=== PATIENT | female | born 1980 | race Caucasian/White ===

== ENCOUNTER 2016-11-01 20:50 | Emergency (ER) | payer OTHER ==
[2016-11-01] MEDS ORDERED: PANTOPRAZOLE 40 MG TABLET PO STA (22:55)
[2016-11-01] MEDS ORDERED: PANTOPRAZOLE 40 MG TABLET ONE ×2 (22:56→22:58)
== END 2016-11-01 23:06 | disposition home or self-care (01) ==
DX: R10.11 Right upper quadrant pain (principal); R10.13 Epigastric pain; K21.9 Gastro-esophageal reflux disease without esophagitis; Z87.891 Personal history of nicotine dependence
CPT/HCPCS: 36415; 76705; 80053; 81003; 83690; 85025; 99283; A9270

== ENCOUNTER 2017-01-03 21:26 | Emergency (ER) | payer OTHER ==
[2017-01-03 21:33] VITALS: BP 102/66
[2017-01-03] MEDS ORDERED: ACETAMINOPHEN 325 MG TABLET PO STA (21:44)
--- NOTE | 2017-01-03 21:45 | ED Physician Documentation ---
PD HPI LOWER EXT INJURY - Stated complaint Stated Complaint: RT FOOT INJURY - Chief complaint Chief Complaint: Ext Problem - History obtained from History obtained from: Patient - History of Present Illness PD HPI LOW EXT INJURY LOCATION: Right, Ankle, Foot Type of injury: Twist Where injury occurred: Street Timing - onset: Today Timing - duration: Hours (1) Timing - details: Abrupt onset Pain level max: 8 Pain level now: 8 Improved by: Rest Worsened by: Moving, Palpating Associated symptoms: Swelling. No: Weakness, Numbness, Tingling Similar symptoms before: Has not had sx before Recently seen: Not recently seen Review of Systems Constitutional: denies: Fever, Chills Nose: denies: Rhinorrhea / runny nose, Congestion Throat: denies: Sore throat GI: denies: Abdominal Pain, Nausea, Vomiting, Diarrhea : denies: Now EGA Skin: denies: Rash Musculoskeletal: denies: Neck pain, Back pain Neurologic: denies: Headache, Head injury PD PAST MEDICAL HISTORY - Past Medical History Past Medical History: Yes Cardiovascular: None Respiratory: None Neuro: None Endocrine/Autoimmune: None GI: GERD BOTTOM MAN: None : Chronic bladder infection HEENT: None Psych: Anxiety Musculoskeletal: None Derm: None - Past Surgical History Past Surgical History: Yes /BOTTOM MAN: section, Dilation and currettage - Present Medications Home Medications: Ambulatory Orders Medication Instructions Recorded Confirmed Multivitamin [Multivitamins] 1 each PO DAILY 11/01/16 01/03/17 Ibuprofen [Motrin] 800 mg PO Q8H PRN #30 tablet 01/03/17 - Allergies Allergies/Adverse Reactions: Allergies Allergy/AdvReac Type Severity Reaction Status Date / Time hydrocodone bitartrate * AdvReac see below Verified 01/03/17 21:33 [From Vicodin] - Social History Does the pt smoke?: No Smoking Status: Former smoker Does the pt drink ETOH?: Yes Does the pt have substance abuse?: No - Immunizations Immunizations are current?: Yes - POLST Patient has POLST: No PD ED PE NORMAL - Vitals Vital signs reviewed: Yes - General General: Alert and oriented X 3, No acute distress - Derm Derm: Warm and dry - Extremities Extremities: Other (Right ankle and foot - Tender palpation over the lateral malleolus and the base of the fifth metatarsal. Neurovascularly intact. Otherwise normal exam.) - Neuro Neuro: Alert and oriented X 3 Results - Vitals Vitals: Vital Signs - 24 hr 01/03/17 21:29 Temperature 36.2 C L Heart Rate 72 Respiratory 15 Rate Blood Pressure 102/66 O2 Saturation 99 Oxygen O2 Source Room air - Rads (name of study) Right foot x-ray Radiology: Prelim report reviewed, EMP read contemporaneously, See rad report ( Normal) Right ankle x-ray Radiology: Prelim report reviewed, EMP read contemporaneously, See rad report ( Normal) PD MEDICAL DECISION MAKING - ED course Complexity details: reviewed results, re-evaluated patient, considered differential, d/w patient ED course: Patient is a 36-year-old female who appears to have a foot and ankle sprain. Did offer to place her in a walking boot, she declines this. Will place in an Aircast and she has crutches for home. Pain well controlled. No fractures on x -ray. Counseled regarding missed fractures secondary to acute swelling and may need repeat xrays if not improving. Patient counseled regarding signs and symptoms for which I believe and urgent re-evaluation would be necessary. Patient with good understanding of and agreement to plan and is comfortable going home at this time This document was made in part using voice recognition software. While efforts are made to proofread this document, sound alike and grammatical errors may occur. Departure - Departure Disposition: 01 Home, Self Care Clinical Impression: Ankle sprain Qualifiers: Encounter type: initial encounter Involved ligament of ankle: unspecified ligament Laterality: right Qualified Code(s): S93.401A - Sprain of unspecified ligament of right ankle, initial encounter Condition: Good Instructions: ED Sprain Foot, ED Sprain Ankle Follow-Up: JUNAID MERRITT [Primary Care Provider] - Within 1 week Prescriptions: Ibuprofen [Motrin] 800 mg PO Q8H PRN #30 tablet PRN Reason: PAIN &/OR FEVER Comments: Return if you worsen. Your xrays are normal today. You may bear weight as tolerated Discharge Date/Time: 01/03/17 23:00
[2017-01-03] MEDS ORDERED: ACETAMINOPHEN 325 MG TABLET PO ONE (21:55)
--- NOTE | 2017-01-03 22:15 | XRAY Preliminary Report ---
Exam: XR Foot 3 View RT IMPRESSION: Normal foot radiography. [facility] SITE ID: [id number]
--- NOTE | 2017-01-03 22:16 | XRAY Preliminary Report ---
Exam: XR Ankle 3 View RT IMPRESSION: Normal ankle radiography. [facility] SITE ID: [id number]
--- NOTE | 2017-01-03 22:18 | XRAY Report ---
EXAM: RIGHT FOOT RADIOGRAPHY EXAM DATE: 01/03/2017 09:50 PM. CLINICAL HISTORY: Fall. Rolled foot and ankle. COMPARISON: None. TECHNIQUE: 3 views. FINDINGS: Bones: Normal. No fractures or bone lesions. Joints: Normal. No subluxations. Soft Tissues: Normal. No soft tissue swelling. IMPRESSION: Normal foot radiography. [facility] Referring Provider Line: [phone] SITE ID: [id number]
--- NOTE | 2017-01-03 22:19 | XRAY Report ---
EXAM: RIGHT ANKLE RADIOGRAPHY EXAM DATE: 01/03/2017 09:50 PM. CLINICAL HISTORY: Pain with ambulation, movement after fall on curb. COMPARISON: None. TECHNIQUE: 3 views. FINDINGS: Bones: Normal. No fractures or bone lesions. Joints: Normal. No effusion. No subluxations. The ankle mortise is normally aligned. Soft Tissues: Normal. No soft tissue swelling. IMPRESSION: Normal ankle radiography. [facility] Referring Provider Line: [phone] SITE ID: [id number]
== END 2017-01-03 23:00 | disposition home or self-care (01) ==
LOC: ED 21:26
DX: S93.401A Sprain of unspecified ligament of right ankle, initial encounter (principal); S93.601A Unspecified sprain of right foot, initial encounter; X50.1XXA Overexertion from prolonged static or awkward postures, initial encounter; Y93.89 Activity, other specified; Y92.410 Unspecified street and highway as the place of occurrence of the external cause; Z87.891 Personal history of nicotine dependence
CPT/HCPCS: 73610; 73630; 99283; A9270

== ENCOUNTER 2017-12-11 12:09 | Emergency (ER) | payer OTHER ==
[2017-12-11] MEDS ORDERED: PHENAZOPYRIDINE 100 MG TABLET PO STA (12:27)
--- NOTE | 2017-12-11 12:33 | ED Physician Documentation ---
PD HPI FEMALE - Stated complaint Stated Complaint: FEMALE - Chief complaint Chief Complaint: UTI - History obtained from History obtained from: Patient - History of Present Illness Timing - onset: Other (Urinary frequency and burning for about a week which is worsening with some intermittent right flank pain and felt like she could go for a run today because of the pressure. She has infrequent UTIs, last was a year ago. She is mildly nauseous but denies fevers) Review of Systems Constitutional: reports: Reviewed and negative. denies: Fever, Chills GI: reports: Reviewed and negative : reports: Dysuria, Frequency, Hesitancy. 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 : Chronic bladder infection HEENT: None Psych: Anxiety Musculoskeletal: None Derm: None - Past Surgical History Past Surgical History: Yes /RAW MATERIAL HANDLER: section, Dilation and currettage - Present Medications Home Medications: Ambulatory Orders Medication Instructions Recorded Confirmed Multivitamin [Multivitamins] 1 each PO DAILY 11/01/16 01/03/17 Ibuprofen [Motrin] 800 mg PO Q8H PRN #30 tablet 01/03/17 Phenazopyridine HCl [Pyridium] 200 mg PO TID #6 tablet 12/11/17 Sulfamethoxazole/Trimethoprim 1 each PO BID 5 Days #10 tablet 12/11/17 [Sulfamethoxazole-Tmp Ds Tablet] - Allergies Allergies/Adverse Reactions: Allergies Allergy/AdvReac Type Severity Reaction Status Date / Time hydrocodone bitartrate * AdvReac see below Verified 01/03/17 21:33 [From Vicodin] - Social History Does the pt smoke?: No Smoking Status: Never smoker Does the pt drink ETOH?: Yes Does the pt have substance abuse?: No - Immunizations Immunizations are current?: Yes - POLST Patient has POLST: No PD ED PE NORMAL - Vitals Vital signs reviewed: Yes - General General: Alert and oriented X 3, No acute distress - Abdomen Abdomen: Soft, Non tender - Back Back: No CVA TTP - Neuro Neuro: Alert and oriented X 3, Normal speech Results - Vitals Vitals: Vital Signs - 24 hr 12/11/17 12/11/17 12:12 12:59 Temperature 36.0 C L 36.5 C Heart Rate 70 68 Respiratory 15 17 Rate Blood Pressure 109/61 105/76 O2 Saturation 100 99 Oxygen O2 Source Room air - Labs Labs: Laboratory Tests 12/11/17 12/11/17 12:24 12:24 Urine Color Cancelled YELLOW Urine Clarity Cancelled HAZY Urine pH Cancelled 6.0 Ur Specific [place] Cancelled 1.025 Urine Protein Cancelled NEGATIVE Urine Glucose (UA) Cancelled NEGATIVE Urine Ketones Cancelled NEGATIVE Urine Occult Blood Cancelled SMALL Urine Nitrite Cancelled NEGATIVE Urine Bilirubin Cancelled NEGATIVE Urine Urobilinogen Cancelled 0.2 (NORMAL) Ur Leukocyte Esterase Cancelled MODERATE H Urine RBC Cancelled 0-5 Urine WBC Cancelled >25 H Urine WBC Clumps Cancelled Ur Epithelial Cells Cancelled Ur Squamous Epith Cells Cancelled RARE Squamous Urine Crystals Cancelled Amorphous Sediment Cancelled Urine Bacteria Cancelled Few Urine Casts Cancelled Urine Starch Cancelled Urine Mucus Cancelled Urine Trichomonas Cancelled Urine Yeast Cancelled Urine Sperm Cancelled Ur Oval Fat Bodies Cancelled Ur Microscopic Review Cancelled INDICATED Urine Culture Comments INDICATED Urine HCG, Qual Cancelled NEGATIVE Departure - Departure Disposition: 01 Home, Self Care Clinical Impression: Pyelonephritis Condition: Good Record reviewed to determine appropriate education?: Yes Instructions: Pyelonephritis Dc Prescriptions: Phenazopyridine HCl [Pyridium] 200 mg PO TID #6 tablet Sulfamethoxazole/Trimethoprim [Sulfamethoxazole-Tmp Ds Tablet] 1 each PO BID 5 Days #10 tablet Comments: We will culture your urine, the results should be done in 48-72 hours. If an antibiotic change is necessary we will call you. Return if worse in the meantime, especially if you develop increasing flank pain, fevers, or cannot keep down the medication. Discharge Date/Time: 12/11/17 12:59
[2017-12-11] MEDS ORDERED: SULFAMETH/TRIMETH DS 800/160 MG TABLET PO STA (12:51)
[2017-12-11 13:00] VITALS: BP 105/76
[2017-12-11 13:20] LABS: CLARITY,URINE HAZY (CLEAR); LEUKOCYTE ESTERASE, URINE MODERATE (NEGATIVE); NITRITE,URINE NEGATIVE (NEGATIVE); PROTEIN,URINE NEGATIVE (NEGATIVE); UROBILINOGEN,URINE 0.2 (NORMAL) E.U./dL (NORMAL)
[2017-12-11 13:21] LABS: BILIRUBIN,URINE NEGATIVE (NEGATIVE); GLUCOSE, URINE (UA) NEGATIVE (NEGATIVE); HCG UR QUAL NEGATIVE; KETONES,URINE (UA) NEGATIVE (NEGATIVE); OCCULT BLOOD,URINE SMALL (NEGATIVE)
[2017-12-11 13:22] LABS: BACTERIA,URINE Few /HPF (None Seen); RBC,URINE 0-5 /HPF (0-5); SQUAMOUS EPITHELIAL CELL,UR RARE Squamous (<= Few)
== END 2017-12-11 12:59 | disposition home or self-care (01) ==
LOC: ED 12:09
DX: N12 Tubulo-interstitial nephritis, not specified as acute or chronic (principal)
CPT/HCPCS: 81001; 81025; 87086; 87181; 99283; A9270; 81003

== ENCOUNTER 2018-10-25 14:18 | Emergency (ER) | payer OTHER ==
[2018-10-25] MEDS ORDERED: SODIUM CHLORIDE 0.9% 1,000 ML IV ONE (14:45)
[2018-10-25] MEDS ORDERED: KETOROLAC 30 MG/ML VIAL IVP STA (14:45)
[2018-10-25] MEDS ORDERED: diphenhydrAMINE INJ 50 MG/ML VIAL IVP STA (14:46)
[2018-10-25] MEDS ORDERED: PROCHLORPERAZINE 10 MG/2 ML VIAL IVP STA (14:46)
[2018-10-25] MEDS ORDERED: DEXAMETHASONE 10 MG/ML VIAL IVP STA (14:46)
--- NOTE | 2018-10-25 14:49 | ED Physician Documentation ---
PD HPI HEADACHE - Stated complaint Stated Complaint: BOYD - Chief complaint Chief Complaint: Neuro - History obtained from History obtained from: Patient, Family - History of Present Illness Timing - onset: Last night Timing - onset during: Rest Timing - duration: Days (1) Timing - details: Gradual onset, Still present Location: Front, Right, Left Quality: Throbbing Associated symptoms: Nausea. No: Fever, Stiff neck, Vomiting, Weakness, Numbness, Syncope, Seizure, Eye pain, Vision changes Improved by: Rest, Dark room, Quiet, Meds Worsened by: Light, Noise Contributing factors: No: Anticoagulated Similar symptoms before: Diagnosis (migraine) Recently seen: Not recently seen - Additional information Additional information: 38-year-old female who has developed a cycle of headaches in adulthood has had a remote history of migraine and she has had an increase in the frequency of her headaches. She developed a headache last night she usually is able to get rid of with some ibuprofen, and overnight the headache has worsened she has some nausea and she has not vomited. Review of Systems Constitutional: denies: Fever Eyes: reports: Photophobia. denies: Decreased vision Ears: denies: Ear pain Nose: denies: Rhinorrhea / runny nose, Congestion Throat: denies: Sore throat Cardiac: denies: Chest pain / pressure, Palpitations Respiratory: denies: Dyspnea, Cough GI: reports: Nausea. denies: Abdominal Pain, Vomiting : denies: Dysuria, Frequency Skin: denies: Rash Musculoskeletal: denies: Neck pain, Back pain, Extremity pain Neurologic: reports: Headache. 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 : Chronic bladder infection HEENT: None Psych: Anxiety Musculoskeletal: None Derm: None - Past Surgical History Past Surgical History: Yes /PHOTOGRAMMETRIC TECH: section, Dilation and currettage - Present Medications Home Medications: Ambulatory Orders Medication Instructions Recorded Confirmed Multivitamin [Multivitamins] 1 each PO DAILY 11/01/16 01/03/17 Ibuprofen [Motrin] 800 mg PO Q8H PRN #30 tablet 01/03/17 Phenazopyridine HCl [Pyridium] 200 mg PO TID #6 tablet 12/11/17 Sulfamethoxazole/Trimethoprim 1 each PO BID 5 Days #10 tablet 12/11/17 [Sulfamethoxazole-Tmp Ds Tablet] - Allergies Allergies/Adverse Reactions: Allergies Allergy/AdvReac Type Severity Reaction Status Date / Time hydrocodone bitartrate * AdvReac see below Verified 01/03/17 21:33 [From Vicodin] - Social History Does the pt smoke?: No Smoking Status: Never smoker Does the pt drink ETOH?: Yes Does the pt have substance abuse?: No - Immunizations Immunizations are current?: Yes - POLST Patient has POLST: No PD ED PE NORMAL - Vitals Vital signs reviewed: Yes (normal ) - General General: Alert and oriented X 3, No acute distress, Well developed/nourished - HEENT HEENT: Atraumatic, PERRL, EOMI, Ears normal, Moist mucous membranes, Pharynx benign, Dentition benign - Neck Neck: Supple, no meningeal sign, No bony TTP, Other (There is no significant tenderness to the occipital nerve. ) - Cardiac Cardiac: RRR, No murmur - Respiratory Respiratory: No respiratory distress, Clear bilaterally - Abdomen Abdomen: Soft, Non tender - Back Back: No CVA TTP, No spinal TTP - Derm Derm: Normal color, Warm and dry, No rash - Extremities Extremities: No deformity, No edema - Neuro Neuro: Alert and oriented X 3, mother helper 2-12 intact, No motor deficit, No sensory deficit, Normal speech Eye Opening: Spontaneous Motor: Obeys Commands Verbal: Oriented GCS Score: 15 - Psych Psych: Normal mood, Normal affect Results - Vitals Vitals: Vital Signs - 24 hr 10/25/18 14:31 Temperature 36.2 C L Heart Rate 83 Respiratory 16 Rate Blood Pressure 115/72 O2 Saturation 99 Oxygen O2 Source Room air PD MEDICAL DECISION MAKING - ED course Complexity details: reviewed old records, reviewed results, re-evaluated patient, considered differential, d/w patient, d/w family ED course: 38-year-old female with an increase in headache frequency appears to have migraine today she is treated with a cocktail of saline, Decadron, compazine, Benadryl and Toradol. Departure - Departure Disposition: 01 Home, Self Care Clinical Impression: Migraine Qualifiers: Migraine type: without aura Status migrainosus presence: without status migrainosus Intractability: not intractable Qualified Code(s): G43.009 - Migraine without aura, not intractable, without status migrainosus Condition: Stable Instructions: ED Headache Migraine Follow-Up: JUNAID MERRITT [Primary Care Provider] -
[2018-10-25 16:02] VITALS: BP 127/78
== END 2018-10-25 16:02 | disposition home or self-care (01) ==
LOC: ED 14:18
DX: G43.009 Migraine without aura, not intractable, without status migrainosus (principal)
CPT/HCPCS: 96361; 96374; 96375; 99283; 99284; J1200